=== PATIENT | female | born 1935 | race Two or more races ===

== ENCOUNTER 2020-11-08 15:49 | Emergency (ER) | payer OTHER ==
[~2020-11-08] VITALS: Ht 154.9 cm; Wt 64.0 kg
[2020-11-08] MEDS ORDERED: JANUMET 50-1,01 EACH PO (16:28)
[2020-11-08] MEDS ORDERED: NORVASC5 MG (16:29)
[2020-11-08] MEDS ORDERED: ATENOLOL-CHLOR1 EACH (16:29)
[2020-11-08] MEDS ORDERED: ADULT LOW DOSE81 M1 (16:29)
[2020-11-08] MEDS ORDERED: COZAAR100 MG (16:30)
[2020-11-08] MEDS ORDERED: DOLOGEN 325-11 EACH (16:30)
[2020-11-08] MEDS ORDERED: MULTI VITAMIN1 EACH (16:30)
[2020-11-08] MEDS ORDERED: ATORVASTATIN CA20 MG (16:30)
== END 2020-11-08 23:41 | disposition home or self-care (01) ==
LOC: ER 15:49
DX: K21.9 Gastro-esophageal reflux disease without esophagitis (principal); K25.9 Gastric ulcer, unspecified as acute or chronic, without hemorrhage or perforation; Z03.818 Encounter for observation for suspected exposure to other biological agents ruled out